=== PATIENT | female | born 1990 | race Caucasian/White ===

== ENCOUNTER → 2017-05-03 15:25 | Observation (INO) ==
--- NOTE | 2017-05-03 14:34 | OB/GYN Progress Note ---
Date of Encounter: 05/03/17 Time of Encounter: 02:45 - Assessment and Plan (1) Pruritic urticarial papules and plaques of Current Visit: Yes Status: Acute 2 weeks of pruritic erythematous, blanchable papular rash circumferentially extending out from her umbilicus about 6in in radius with a lacy pattern along stretch ulloa. Plan: - hydrocortizone cream 1% - Benadryl 25mg once - FHT reassuring, monitoring discontinued due to patient discomfort. Reactive NST in the office - continue moisturizing with a non-fragrant, hypoallergenic cream Pt safe for discharge home, with instructions to take Benadryl 25mg before bed for itching ( no driving on Benadryl), apply hydrocortizone cream 1% BID. Patient instructed when to return to triage or call provider. Pt verbalizes understanding. Can f/u outpatient. (2) with 37 weeks completed gestation Current Visit: Yes Status: Acute (3) Twin gestation in third trimester Current Visit: Yes Status: Acute Qualifiers: Multiple gestation type: dichorionic and diamniotic Qualified Code(s): O30.043 - Twin , dichorionic/diamniotic, third trimester Subjective - Subjective Principal diagnosis: rash during Interval history: Pattient is a 26 y/o female at 37 + 0 weeks with twins presented to L&D with an itchy, red rash along her stretch ulloa on the anterior aspect of her abdomen. Rash appeared 2 weeks ago and has worsened and spread. Patient states she has been using moisturizer constantly every time it itches. Patient has not tried Benadryl or hydrocortisone cream. Patient is not itchy in any place other than where the rash is. She reports small raised papules appearing on her arm and leg that began yesterday. Patient reports no fever, chills, [place]FT[place], N/V, vaginal bleeding, regular contractions, or loss of fluid. Reports active movement. Antepartum ROS: movement normal, no loss of fluid, no vaginal bleeding, no contractions Objective - Vital Signs Vital Signs: Intake and Output 05/02/17 05/03/17 05/03/17 23:59 07:59 15:59 Other: Weight 95.708 kg Patient Weight 05/03/17 23:59 Weight 95.708 kg - Exam FHR: category 1 Auscultation: bilateral: normal Abdomen: Present: soft, other (warm, erythematous, blanchable lacy raised papular macular rash extending circumferentially around umbilicus ~6 inch in radius, 3 papular red raised lesions on medial aspect of left thigh and upper arm left medial aspect ) Uterus: Present: normal
[2017-05-03 14:59] LABS: Amphetamine Screen,Urine Negative ng/mL (Cutoff=1000); Barbiturate Screen,Urine Negative ng/mL (Cutoff=200); Benzodiazepines Screen,Urine Negative ng/mL (Cutoff=200); Cannabinoid Screen,Urine Negative ng/mL (Cutoff = 50); Cocaine Screen,Urine Negative ng/mL (Cutoff= 300); Opiate Screen,Urine Negative ng/mL (Cutoff=300); Phencyclidine Screen,Urine Negative ng/mL (Cutoff=25)
== END | disposition home or self-care (01) ==
LOC: 1NENULAB
PROVIDERS: ADMIT Pediatrics; ATTEND Pediatrics

== ENCOUNTER 2017-05-04 22:50 | Observation (INO) ==
--- NOTE | 2017-05-04 23:40 | OB/GYN Progress Note ---
Date of Encounter: 05/05/17 Time of Encounter: 07:23 (Triaged by RN) - Assessment and Plan (1) Twin gestation in third trimester Status: Acute Qualifiers: Multiple gestation type: unspecified Qualified Code(s): O30.003 - Twin , unspecified number of placenta and unspecified number of amniotic sacs, third trimester (2) False labor Status: Acute Objective - Vital Signs Vital Signs: Intake and Output 05/04/17 05/04/17 05/04/17 07:59 15:59 23:59 Other: Weight 95.254 kg Patient Weight 05/04/17 23:59 Weight 95.254 kg
== END 2017-05-05 00:30 | disposition home or self-care (01) ==
LOC: 1NENULAB